=== PATIENT | male | born 1995 | race Caucasian/White ===

== ENCOUNTER 2019-11-25 01:51 | Emergency (ER) | payer MEDICAID, OTHER ==
[~2019-11-25] VITALS: Ht 175 cm; Wt 77.0 kg
[2019-11-25] MEDS ORDERED: NAPROXEN 250 MG (NAPROSYN) TABLET PO ONE (02:15)
[2019-11-25] MEDS ORDERED: IBUPROFEN 800 MG (MOTRIN) TAB PO ONE ×3 (02:16→02:30)
--- NOTE | 2019-11-25 02:16 | ED Upper Extremity ---
General Chief Complaint: Upper Extremity Stated Complaint: LEFT ARM PAIN Source: patient Exam Limitations: no limitations History of Present Illness Date Seen by Provider: Nov 25, 2019 Time Seen by Provider: 02:00 Initial Comments Patient presents to ER by private conveyance with chief complaint of some left arm pain pulsating since yesterday afternoon lasting for a few seconds to a minute and then going away. It came back again this morning. He was not sleepi ng. He does not smoke or have a history of coronary disease or familial history of early-onset coronary disease. No chest pain, shortness of breath, nausea sweats or chills. No hypertension hyperlipidemia. He does have a history of anxiety and bipolar disorder and has not followed with a doctor for about a year because he did not feel medications were helping. He used to follow with [facility]. He does have a history of neck and back pain aggravated yesterday by unloading a truck at [employer] where he works. He is not having any pain in his shoulder or elbow. He is right-handed and this is contralateral side. He says the pain is just starting to come back now. He does not take any pain medicine for it. He does not take any medications routinely. He has no allergies. He says he was reading online and arm pain could be a sign of a heart attack so he decided to come to a doctor [place]. Allergies and Home Medications Allergies Coded Allergies: No Known Drug Allergies (Unverified , 11/25/19) Patient Home Medication List Home Medication List Reviewed: Yes Review of Systems Constitutional: No chills, No diaphoresis EENTM: No hearing loss, No ear pain Respiratory: No cough, No short of breath Cardiovascular: No chest pain, No edema Gastrointestinal: No abdominal pain, No nausea Genitourinary: No discharge, No dysuria Musculoskeletal: see HPI All Other Systems Reviewed Negative Unless Noted: Yes Past Jvthmrj-Gzxnvy-Jvurie Hx Patient Social History Alcohol Use: Denies Use Recreational Drug Use: No Type Used: Electronic/Vapor Recent Foreign Travel: No Contact w/Someone Who Travel: No Physical Exam Vital Signs Capillary Refill : Height, Weight, BMI Height: '" Weight: lbs. oz. kg; BMI Method: General Appearance: WD/WN, no apparent distress HEENT: PERRL/EOMI, pharynx normal Neck: non-tender, full range of motion, normal inspection Cardiovascular: normal peripheral pulses, regular rate, rhythm Respiratory: no respiratory distress, no accessory muscle use Shoulder: normal inspection, non-tender, no evidence of injury, normal ROM Elbow/Forearm: normal inspection, non-tender, no evidence of injury, normal ROM, Left Wrist: Yes normal inspection, Yes non-tender, Yes no evidence of injury, Yes normal ROM Neurologic/Psychiatric: alert, normal mood/affect, oriented x 3, other (left brachial radialis reflex 2 out of 4. ) Skin: normal color, warm/dry Progress/Results/Core Measures Results/Orders My Orders Orders - FREDERICK CHAMORRO Ekg Tracing (11/25/19 02:08) Naproxen Tablet (Naprosyn Tablet) (11/25/19 02:15) Progress Progress Note : Time: 02:14 Progress Note Pulsating pain in his left forearm most likely from a compressive neuropathy somewhere in either his left upper extremity or neck. He has some neck and back pain. We have recommended NSAIDs, stretching exercises, chiropractic and massage therapy. If he's not seeing improvement then we recommend he follow up with a primary care doctor. At this time he has no true anginal symptoms nor coronary history but because of his concern with what he read on the Internet we obtained an EKG which was also normal. Ibuprofen 800 mg by mouth Initial ECG Impression Date: Nov 25, 2019 Initial ECG Impression Time: 02:09 Initial ECG Rate: 95 Initial ECG Rhythm: Normal Sinus Initial ECG Intervals: Normal Initial ECG Impression: Normal Initial ECG Comparisson: No Previous ECG Available Comment Normal sinus rhythm without clinically relevant ST elevation or depression. Departure Impression Primary Impression: Compression neuropathy of left upper extremity Disposition: 01 HOME, SELF-CARE Condition: Stable Departure-Patient Inst. Decision time for Depature: 02:16 Referrals: [facility] (PCP/Family) Primary Care Physician Patient Instructions: Active Range of Motion Exercises, Neck and Shoulders, Radial Nerve Entrapment Add. Discharge Instructions: Naproxen 2 tablets [id number] twice a day on a scheduled basis for the next 1-2 weeks. You may also use the prescription naproxen 1 tablet 500 mg twice a day. Tylenol 1000 mg every 8 hours as needed for breakthrough pain. If you're having neck pain or back pain you can also use topical creams such as icy hot or Biofreeze. Ice applied your neck or back for the first couple days can be helpful. Follow-up with a chiropractor for reevaluation. Follow-up with primary care for further evaluation if your symptoms persist for more than 2 weeks despite NSAIDs such as naproxen/Aleve or ibuprofen. All discharge instructions reviewed with patient and/or family. Voiced understanding. Scripts Naproxen (Naprosyn) 500 Mg Tablet 500 MG PO BID, #30 TAB 0 Refills Prov: FREDERICK CHAMORRO 11/25/19 FREDERICK CHAMORRO Nov 25, 2019 02:16
[2019-11-25] MEDS ORDERED: NAPR-1071 PO (02:18)
[2019-11-25 02:20] VITALS: BP 155/82
== END 2019-11-25 02:25 | disposition home or self-care (01) ==
LOC: ER FS 01:59
DX: G56.92 Unspecified mononeuropathy of left upper limb (principal); F41.9 Anxiety disorder, unspecified; F31.9 Bipolar disorder, unspecified
CPT/HCPCS: 93005